=== PATIENT | female | born 1955 | race Caucasian/White ===

== ENCOUNTER → 2017-10-03 | Outpatient (CLI) | payer OTHER ==
[~2017-10-03] MED LIST: ALBU90OI INH; ALBU90OI6 INH; AMLO5 PO; ASPI81CH PO; CEPH500 PO; CHOL10002 PO; CLOP75; CLOP75 PO; Coreg12.5 MG PO; DULO60 PO; FLUSAL1005 IH; FURO20 PO; HYDCHL12.5 PO; LEVSOD137 PO; LORA10; LOSA50 PO; MECL12.5 PO; MONT10T PO; Norco 5-325 Ta1 EACH PO; OXYACE5T PO; PANT40 PO; POTA8 PO; PRAM.5 PO; Prednisone50 MG PO; RANI150 PO; ROSU10TA PO; SIMV10 PO; SULTRIDS PO; TELM20 PO; TRAM50 PO; URSO300 PO
[2017-10-03 12:02] LABS: Source, Urine Clean Catch
[2017-10-03 13:03] LABS: Appearance, Urine Clear (Clear); Bilirubin, Urine Neg (Neg); Blood, Urine Neg (Neg); Color, Urine Yellow (P-Yellow); Glucose Qualitative, Urine 2+ (Neg); Ketones, Urine Neg (Neg); Leukocyte Esterase, Urine 1+ (Neg); Nitrite, Urine Neg (Neg); Protein, Urine Neg (Neg); Specific Gravity, Urine 1.015 (1.003-1.022); Urobilinogen, Urine NORM (Normal)
[2017-10-03 13:34] LABS: Bacteria Rare /hpf; Red Blood Cells, Urine Not Seen /hpf (0-2); Squamous Epithelial Cells Few /hpf (Few)
== END ==
LOC: LAB SHORT 12:00
PROVIDERS: Obstetrics & Gynecology
DX: R32 Unspecified urinary incontinence (principal)
CPT/HCPCS: 81001; 87086

== ENCOUNTER → 2018-03-13 | Outpatient (CLI) | payer OTHER ==
[~2018-03-13] MED LIST changes: +CARV6.25 PO; -CHOL10002 PO; -Coreg12.5 MG PO; -FURO20 PO; +LEVSOD100 PO; -LEVSOD137 PO; -MECL12.5 PO; -MONT10T PO; -PANT40 PO; -POTA8 PO
== END | disposition home or self-care (01) ==
LOC: LAB SHORT 11:05 → PLD 11:05
DX: B35.1 Tinea unguium (principal); L60.2 Onychogryphosis
CPT/HCPCS: 88305; 88312

== ENCOUNTER → 2021-10-08 | Outpatient (CLI) | payer OTHER ==
[~2021-10-08] MED LIST changes: +BUSP5 PO; -CARV6.25 PO; +CHOL10002 PO; +Coreg12.5 MG PO; +FURO20 PO; -LEVSOD100 PO; +LEVSOD137 PO; +MECL12.5 PO; +MONT10T PO; +PANT40 PO; +POTA8 PO; +Ranitidine HCl150 M1 PO
[2021-10-09 14:25] LABS: Candida species (DNA Probe) Negative (NEGATIVE); G. vaginalis (DNA Probe) Negative (NEGATIVE); T. vaginalis (DNA Probe) Negative (NEGATIVE)
[2021-10-11 15:10] LABS: HPV 16 Negative (Negative); HPV 18 Negative (Negative); HPV OTHER HR TYPES Negative (Negative)
== END ==
LOC: LAB SHORT 12:19 → LAB 12:19
PROVIDERS: Family Medicine
DX: L29.3 Anogenital pruritus, unspecified (principal); Z12.4 Encounter for screening for malignant neoplasm of cervix
CPT/HCPCS: 87480; 87510; 87660

== ENCOUNTER → 2022-10-05 | Outpatient (CLI) | payer OTHER | END | disposition home or self-care (01) | LOC: LAB SHORT 07:45 → LAB 07:45 | DX: L60.2 Onychogryphosis (principal); B35.1 Tinea unguium | CPT/HCPCS: 88305; 88312 ==

== ENCOUNTER 2023-06-30 11:38 | Day surgery (SDC) | payer OTHER ==
[~2023-06-30] VITALS: Ht 152.4 cm; Wt 93.0 kg
[2023-06-30] MEDS ORDERED: HYDCHL25 (13:33)
[2023-06-30] MEDS ORDERED: GABA100 (13:33)
[2023-06-30] MEDS ORDERED: GLIP2.5ER (13:33)
[2023-06-30] MEDS ORDERED: MELO7.5 (13:34)
[2023-06-30] MEDS ORDERED: SPIR25 (13:35)
[2023-06-30] MEDS ORDERED: TRAM50 (13:36)
[2023-06-30 15:23] VITALS: BP 122/73
== END 2023-06-30 15:23 | disposition home or self-care (01) ==
LOC: ORSCSDS 11:38
DX: Z12.11 Encounter for screening for malignant neoplasm of colon (principal); D12.3 Benign neoplasm of transverse colon; K64.4 Residual hemorrhoidal skin tags; Z86.010 Personal history of colon polyps; Z80.0 Family history of malignant neoplasm of digestive organs; E03.9 Hypothyroidism, unspecified; J45.909 Unspecified asthma, uncomplicated; E88.810 Metabolic syndrome; I10 Essential (primary) hypertension; E78.5 Hyperlipidemia, unspecified; E11.9 Type 2 diabetes mellitus without complications; Z79.82 Long term (current) use of aspirin; Z79.84 Long term (current) use of oral hypoglycemic drugs; Z79.899 Other long term (current) drug therapy
CPT/HCPCS: 82947; 88305; J2704; J7120

== ENCOUNTER 2023-07-19 20:02 | Emergency (ER) | payer OTHER ==
[~2023-07-19] VITALS: Ht 152.4 cm; Wt 97.1 kg
[~2023-07-19 20:02] MED LIST changes: +GABA100; +GLIP2.5ER; +HYDCHL25; +MELO7.5; +SPIR25; +TRAM50
[2023-07-19 22:22] VITALS: BP 144/73
== END 2023-07-19 22:30 | disposition home or self-care (01) ==
LOC: ER 20:02
DX: S09.90XA Unspecified injury of head, initial encounter (principal); V03.90XA Pedestrian on foot injured in collision with car, pick-up truck or van, unspecified whether traffic or nontraffic accident, initial encounter; Z79.899 Other long term (current) drug therapy; Z79.82 Long term (current) use of aspirin; I10 Essential (primary) hypertension; E78.00 Pure hypercholesterolemia, unspecified; M19.90 Unspecified osteoarthritis, unspecified site; E03.9 Hypothyroidism, unspecified
CPT/HCPCS: 70450; 99284-25

== ENCOUNTER 2024-01-04 09:13 | Day surgery (SDC) | payer OTHER ==
[~2024-01-04] VITALS: Ht 152.4 cm; Wt 93.6 kg
[2024-01-04 14:10] VITALS: BP 111/63
== END 2024-01-04 12:15 | disposition home or self-care (01) ==
LOC: ORSCSDS 09:13
PROC: 0DJ08ZZ Inspection of Upper Intestinal Tract, Via Natural or Artificial Opening Endoscopic (ICD-10-PCS; principal; 2024-01-04)
DX: K74.60 Unspecified cirrhosis of liver (principal); Z13.810 Encounter for screening for upper gastrointestinal disorder; Z87.19 Personal history of other diseases of the digestive system; E11.9 Type 2 diabetes mellitus without complications; K44.9 Diaphragmatic hernia without obstruction or gangrene; E07.9 Disorder of thyroid, unspecified; I10 Essential (primary) hypertension; E03.9 Hypothyroidism, unspecified; I25.10 Atherosclerotic heart disease of native coronary artery without angina pectoris; E78.5 Hyperlipidemia, unspecified; Z79.82 Long term (current) use of aspirin; Z79.899 Other long term (current) drug therapy

== ENCOUNTER → 2024-09-30 | Outpatient (CLI) | payer OTHER ==
[~2024-09-30] MED LIST changes: +CYCL10; -GABA100; +GABA100 PO; +LEVSOD100 PO; +POTCHL20ER PO; +RYBELSUS3 MG PO; +URSO300
== END ==
LOC: LAB 09:50 → LAB SHORT 09:50
DX: D69.6 Thrombocytopenia, unspecified (principal)
CPT/HCPCS: 87338

== ENCOUNTER 2025-04-01 08:32 | Day surgery (SDC) | payer OTHER ==
[~2025-04-01] VITALS: Ht 152.4 cm; Wt 87.2 kg
[2025-04-01] MEDS ORDERED: BENZ100A (08:49)
[2025-04-01] MEDS ORDERED: FISH OIL 1,0001 EA10 (08:49)
[2025-04-01] MEDS ORDERED: ALEVAZOL56.7 G1 (08:49)
[2025-04-01] MEDS ORDERED: OMEP20ER (08:51)
[2025-04-01] MEDS ORDERED: LEVOTHYROXINE112 M19 (08:51)
[2025-04-01] MEDS ORDERED: Vitamin C100 M1 (08:52)
[2025-04-01] MEDS ORDERED: VITAMIN E90 MG (08:52)
[2025-04-01 11:10] VITALS: BP 115/66
== END 2025-04-01 11:05 | disposition home or self-care (01) ==
LOC: ORSCSDS 08:32
PROVIDERS: Specialist
PROC: 0DJ08ZZ Inspection of Upper Intestinal Tract, Via Natural or Artificial Opening Endoscopic (ICD-10-PCS; principal; 2025-04-01 10:00)
DX: Z13.810 Encounter for screening for upper gastrointestinal disorder (principal); E88.810 Metabolic syndrome; K74.3 Primary biliary cirrhosis; I25.2 Old myocardial infarction; I25.10 Atherosclerotic heart disease of native coronary artery without angina pectoris; I10 Essential (primary) hypertension; E78.5 Hyperlipidemia, unspecified; E03.9 Hypothyroidism, unspecified; E11.9 Type 2 diabetes mellitus without complications; J45.909 Unspecified asthma, uncomplicated; F32.A Depression, unspecified; Z79.82 Long term (current) use of aspirin; Z79.84 Long term (current) use of oral hypoglycemic drugs; Z79.899 Other long term (current) drug therapy
CPT/HCPCS: 82947; J2704; J7120